=== PATIENT | male | born 1950 | race Caucasian/White ===

== ENCOUNTER 2018-01-01 02:10 | Day surgery (SDC) | payer MEDICARE, OTHER ==
[2017-12-31 12:39] LABS: PLATELET COUNT, AUTOMATED 187 K/uL (150-450)
--- NOTE | 2017-12-31 16:04 | HISTORY AND PHYSICAL ---
DATE OF ADMISSION: January 01, 2018 CHIEF COMPLAINT History of bladder cancer. 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 At that time, he had two papillary lesions in the left lateral wall, both measuring approximately 1 cm in size. His followup cystoscopy in February 2017 was normal. However, in June 2017, he was noted to have two small papillary lesions on the left posterior wall. He was subsequently taken back to the operating room on August 04, 2017, at which time he was noted to have two to three small papillary areas which were 3 to 2 mm in size. These were removed with the cold cup biopsy forceps, which returned low-grade transitional carcinoma, superficial in nature. He also had fulguration of other smaller sites. Mitomycin-C intravesical instillation was done at the conclusion of that procedure. He was subsequently given an induction treatment of BCG for six weeks in the office, which was completed on the . He is now being returned to the operating room for planned surveillance cystoscopy with possible bladder biopsy. PAST MEDICAL HISTORY * Kidney stones. * PTH. * Hypogonadism. * Gastroesophageal reflux disease. * History of bladder cancer as per HPI. PAST SURGICAL HISTORY * Right extracorporeal shock wave lithotripsy. * Left ureteral and renal extracorporeal shock wave lithotripsy. * Tonsillectomy. * Bilateral vasectomy. * Inguinal hernia repair. * Colonoscopy. * Transurethral resection of bladder tumor times two June 08. * Cystoscopy with left retrograde pyelogram July 2015. * Cystoscopy with bilateral retrograde pyelograms May 27, 2016. * Cystoscopy with random bladder biopsies October 03, 2016. * Cystoscopy with bladder biopsy and fulguration of lesions with bilateral retrograde pyelograms August 04, 2017. CURRENT MEDICATIONS * Nexium. * Proscar. * Singulair. * AndroGel. * Terazosin. * Colace. * Multivitamins. ALLERGIES PENICILLIN. SOCIAL HISTORY Patient lives in [place], [place]. He is . He denies tobacco use. FAMILY HISTORY Noncontributory. REVIEW OF SYSTEMS Patient denies chest pain, productive cough, fever, chills, nausea, vomiting, gross hematuria, flank pain, change in weight, or change in bowel habits. PHYSICAL EXAMINATION GENERAL: Patient is a well-developed, well-nourished, white male in no acute distress. HEENT: Normocephalic, atraumatic. CHEST: Clear to auscultation bilaterally. CARDIOVASCULAR: Regular rate and rhythm. ABDOMEN: Soft, nontender. No masses are palpated. GENITOURINARY: Deferred to the OR. EXTREMITIES: Without clubbing, cyanosis, or edema. NEUROLOGIC: Nonfocal. 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 PLAN Perform anesthetic cystoscopy with possible bladder biopsies. MTDD
[~2018-01-01] VITALS: Ht 177.8 cm; Wt 81.6 kg
[~2018-01-01 02:10] MED LIST: ANDROGEL; CIPR-326 PO; CYAN25004 PO; DOC100 PO; DOCU-416 PO; DOCU100T13 PO; ERG400 PO; ESOM20CA31 PO; ESOM40CA42 PO; FIN5 PO; FLAX100042 PO; HYDR-317 PO; HYDR-385 PO; HYDR-4309 PO; IBUP600T22 PO; LOR5/325 PO; MAGN27TA6 PO; METAMUCIL; MON10 PO; MULT-820 PO; OXYB10TA16 PO; OXYB10TA21 PO; PER PO; PHEN200T32 PO; PSYL0.5241 PO; SENIOR VITAMIN; TAM4 PO; TERA10CA44 PO; TERA5CAP57 PO; TES75PMPPT TD; UBID200C15 PO; ZINC30CA2 PO; [UNRECOGNIZED DRUG - CODE] PO
[2018-01-01 05:55] VITALS: BP 136/86
[2018-01-01] MEDS ORDERED: NORMOSOL R SOLN(*) 1000 ML BAG 1,000 ML IV PRN (06:45)
[2018-01-01] MEDS ORDERED: MIDAZOLAM 2 MG/2 ML VIAL IVP PRN (06:45)
[2018-01-01] MEDS ORDERED: LIDOCAINE/SOD BICARB 8.4% SYR ID ONE (06:45)
[2018-01-01] MEDS ORDERED: LEVOFLOXACIN/D5W*500 MG/100 ML 100 ML IVPB ONE (06:45)
[2018-01-01] MEDS ORDERED: DEXAMETHASONE SOD PHOS 10MG/ML ONE (06:49)
[2018-01-01] MEDS ORDERED: PROPOFOL EMUL(*) 10MG/ML 20 ML 20 ML ONE (06:49)
[2018-01-01] MEDS ORDERED: fentaNYL CITR 100 MCG/2 ML AMP ONE (06:49)
[2018-01-01] MEDS ORDERED: ONDANSETRON 4 MG/2 ML VIAL ONE (06:49)
[2018-01-01] MEDS ORDERED: LIDOCAINE MPF 1% 5 ML VIAL ONE (06:49)
[2018-01-01] MEDS ORDERED: BELLADONNA ALK/OPIUM 60MG SUPP PR ONE (07:13)
[2018-01-01] MEDS ORDERED: KETAMINE HCL 500 MG/10 ML VIAL ONE (07:49)
[2018-01-01] MEDS ORDERED: ePHEDrine 25 MG/5 ML DISP.SYR IVP ONE (08:02)
[2018-01-01] MEDS ORDERED: KETOROLAC 30 MG/ML VIAL ONE (08:27)
[2018-01-01] MEDS ORDERED: mitoMYcin 20 MG VIAL 40 MG in WATER STERILE FOR INJ 50 ML VL 40 ML IR ONE (08:40)
[2018-01-01 09:45] VITALS: BP 145/92
[2018-01-01] MEDS ORDERED: HYDR-4309 PO (09:53)
[2018-01-01] MEDS ORDERED: DOCU-416 PO (09:54)
[2018-01-01] MEDS ORDERED: PHEN200T32 PO (09:55)
[2018-01-01] MEDS ORDERED: OXYB10TA16 PO (09:55)
[2018-01-01 10:00] VITALS: BP 139/86
[2018-01-01 10:15] VITALS: BP 126/94
[2018-01-01 10:21] VITALS: BP 136/89
--- NOTE | 2018-01-01 15:31 | OPERATIVE REPORT 1 ---
EVENT DATE: January 01, 2018 SURGEON: Loi Ellsworth MD ANESTHESIOLOGIST: John Woodson MD ANESTHESIA: General anesthetic. PREOPERATIVE DIAGNOSIS History of transitional cell carcinoma of the bladder. POSTOPERATIVE DIAGNOSIS Right dome papillary lesions times two, measuring 3 and 2 mm. PROCEDURES PERFORMED 1. Cystoscopy. 2. Cold cup biopsy of dome papillary lesion. 3. Fulguration of biopsy site and fulguration of second dome lesion. 4. Mitomycin-C intravesical instillation in recovery room. ESTIMATED BLOOD LOSS Minimal. INTRAVENOUS FLUIDS Crystalloid. DRAINS 16-Beninese Friedman catheter. PATHOLOGY 1. Bladder cytology. 2. Cold cup biopsy of right 3 mm dome papillary lesion. COMPLICATIONS None. CONDITION Patient taken to recovery room awake, in stable condition. STATEMENT OF MEDICAL NECESSITY Patient is a 67-year-old white male with a history of transitional carcinoma of the bladder, originally diagnosed in May 2015. He was noted to have some very small papillary recurrences in this past fall and, therefore, subsequently underwent induction treatment with BCG for six weeks which was completed approximately three months ago. He is now being returned to the operating room for surveillance cystoscopy. The patient denies any irritative voiding symptoms or hematuria. DESCRIPTION OF PROCEDURE PERFORMED Patient was brought to the operating room. After general anesthetic was obtained, he was placed in the dorsal lithotomy position and prepped and draped in the usual sterile manner. Anesthetic cystoscopy was performed with the 21- Beninese rigid Nino sheath and both the 30- and 70-degree lenses. He had a normal -appearing pendulous bulbomembranous and prostatic urethra. Upon entering his bladder, he had slit-like ureteral orifices where they were both effluxing clear urine. Previous biopsy sites were inspected and were well healed without evidence of recurrence. With the 70-degree lens, he was noted to have two small papillary lesions on the right dome of the bladder, one measuring approximately 3 and the other measuring approximately 2 mm in size. The remainder of the bladder appeared normal without mucosal anomalies. At this point, the cold cup biopsy forceps were introduced, and the 3 mm lesion was removed with excisional biopsy using the cold cup forceps. This was then collected and sent to Pathology. Before the biopsy was performed, bladder barbotage cytology was collected and sent for cytology with reflex to FISH. After cold cup biopsy was performed, the RealSelfbee electrode was introduced under direct vision. The biopsy site was fulgurated, followed by fulguration of the 2 mm lesion just to the medial of this first 3 mm lesion. At the conclusion of the procedure, the bladder was then reinspected. No other lesions were seen, and there was no bleeding from the biopsy or fulguration sites. The scope was removed and a 16-Beninese Friedman catheter placed. A B and O suppository was given per rectum at the conclusion of the case. The patient was awakened in the operating room and taken to the recovery area. Once awake, he was given mitomycin-C 40 mg in 40 mL of water intravesical instillation via the Friedman. The plan will be to keep this in place for one hour and then drain his Friedman and remove his catheter before discharge. PLAN The patient will be discharged home on [place], Colace, Pyridium, and Ditropan. The plan will be to see him in the Urology Clinic in three to four weeks to discuss further BCG treatment. We will be making the decision whether to proceed with another induction course of six weeks versus a three-week course. JOVITAD
== END 2018-01-01 09:45 | disposition home or self-care (01) ==
LOC: OR 02:10
PROVIDERS: ATTEND Urology
DX: N32.9 Bladder disorder, unspecified (principal)
CPT/HCPCS: 36415; 51720; 52224; 81001; 85025; 87088; 88108; 88305; A9270; J1100; J1885; J1956; J2001; J2405; J2704; J3010; J3490; J9280; 82040; 82247; 82310; 82374; 82435; 82565; 82947; 84075; 84132; 84155; 84295; 84450; 84460; 84520

== ENCOUNTER → 2018-02-17 | Outpatient (CLI) | payer MEDICARE, OTHER | LOC: LAB 11:57 | PROVIDERS: ATTEND Urology | DX: C67.9 Malignant neoplasm of bladder, unspecified (principal); R30.0 Dysuria | CPT/HCPCS: 81001; 87088 ==

== ENCOUNTER → 2018-05-12 | Outpatient (REF) | payer MEDICARE, OTHER | LOC: ZZSENDIN 16:30 | PROVIDERS: ATTEND Urology | DX: C67.9 Malignant neoplasm of bladder, unspecified (principal) | CPT/HCPCS: 88108 ==

== ENCOUNTER → 2018-07-27 | Outpatient (REF) | payer MEDICARE, OTHER ==
[~2018-07-27] MED LIST changes: -HYDR-4309 PO; +HYDR-653 PO
== END ==
LOC: ZZSENDIN 15:30
PROVIDERS: ATTEND Urology
DX: C67.9 Malignant neoplasm of bladder, unspecified (principal)
CPT/HCPCS: 88108

== ENCOUNTER → 2018-11-11 | Outpatient (REF) | payer MEDICARE, OTHER | LOC: ZZSENDIN 12:00 | PROVIDERS: ATTEND Urology | DX: R31.9 Hematuria, unspecified (principal) | CPT/HCPCS: 88108 ==

== ENCOUNTER → 2019-02-10 | Outpatient (REF) | payer MEDICARE, OTHER | LOC: ZZSENDIN 12:00 | PROVIDERS: ATTEND Urology | DX: R31.9 Hematuria, unspecified (principal) | CPT/HCPCS: 88108 ==